=== PATIENT | male | born 1985 | race Caucasian/White ===

== ENCOUNTER → 2023-07-17 07:07 | Outpatient (REF) | payer OTHER, SELFPAY | LOC: HWRAD 07:07 | PROVIDERS: ATTENDING PHYSICIAN Student in an Organized Health Care Education/Training Program | DX: R19.09 Other intra-abdominal and pelvic swelling, mass and lump (principal) | CPT/HCPCS: 76870; 76882; 93976 ==

== ENCOUNTER 2023-08-26 20:50 | Inpatient (IN) | payer OTHER, SELFPAY ==
[2023-08-26 14:24] VITALS: BP 135/84
[2023-08-26 14:54] LABS: Hematocrit 48.4 % (39.0-52.0); Hemoglobin 16.4 g/dL (13.0-18.0); Mean Corp Hgb Conc. 33.9 g/dL (33.0-37.0); Mean Corpuscular Hgb 29.4 pg (27.0-31.0); Mean Corpuscular Volume 86.7 fL (80.0-94.0); Mean Platelet Volume 11.1 fL (7.4-10.4); Platelet Count 179 10^3/uL (130-400); Red Blood Cell Count 5.58 10^6/uL (4.70-6.10); Red Cell Dist. Width 12.1 % (11.5-14.5); White Blood Cell Count 7.6 10^3/uL (4.8-10.8)
[2023-08-26 15:09] LABS: ALT (SGPT) 22 U/L (0-50); AST (SGOT) 25 U/L (17-59); Albumin 4.6 g/dl (3.5-5.0); Alkaline Phosphatase 83 U/L (38-126); Blood Urea Nitrogen 12 mg/dl (9-20); Calcium 9.8 mg/dl (8.4-10.2); Carbon Dioxide 28 mmol/L (22-30); Chloride 101 mmol/L (98-107); Glucose 101 mg/dl (70-99); Potassium 3.7 mmol/L (3.5-5.1); Sodium 139 mmol/L (135-145); Total Bilirubin 0.8 mg/dl (0.2-1.3); Total Protein 8.3 g/dl (6.3-8.2); eGFR > 60.00
[2023-08-26 15:19] LABS: Nucleated Red Blood Cells % 0 % (-)
[2023-08-26 15:20] LABS: Absolute Neutrophils -Man Diff 4.2 10^3/uL (1.4-6.5); Atypical Lymphocytes 7 %; Band Neutrophils 1 % (0-3); Lymphocytes 30 % (20-51); Monocytes 7 % (2-9); Platelets Checked Yes; Segmented Neutrophils 55 % (42-75)
[2023-08-26 15:21] LABS: Normal RBC Morphology Yes; Total Cells Counted 100
[2023-08-26 16:25] VITALS: BP 140/72
--- NOTE | 2023-08-26 16:25 | ED.GENMED ---
History of Present Illness
General
Chief Complaint: Abdominal Symptoms
Time Seen by Provider: 08/26/23 16:24
Travel History
Have you had any contact with someone who has COVID-19?: No
Do you have any symptoms of coronavirus? Fever > 100 degrees, chills, cough, shortness of breath, sore throat, loss of taste or smell, muscle aches, or headache?: No
History of Present Illness
History of Present Illness:
HPI: The patient presents with left inguinal pain. He has upcoming surgery for left inguinal hernia repair with [facility] in about a month. He tells me that the pain is more severe that he cannot wait. He vomited once today. The pain is
primarily localized to the left inguinal/left hemiscrotal region.
EXAM:
GENERAL: Well appearing in minimal distress
HEENT: Moist oral mucosa
CARDIOVASCULAR: No murmurs, normal heart rate, regular rhythm, No chest wall tenderness
PULMONARY: No respiratory distress, breath sounds are clear and equal
ABDOMEN: Soft with no peritoneal signs, no tenderness, there is a large left inguinal hernia which is relatively soft but there is also extension of the left hemiscrotum which is larger than the size of a softball
NEUROLOGIC: Excellent strength all extremities, no coordination deficits
PSYCHIATRIC: Appropriate mental status, normal insight and judgement
EXTREMITIES: Nontender, no edema, moves all extremities equally
SKIN: No rash, no lesions
TIME OF INITIAL ENCOUNTER: 4:40 PM
NUMBER AND COMPLEXITY OF PROBLEMS ADDRESSED AT THE ENCOUNTER
� Chronic conditions affecting care: Known left inguinal hernia
� Acute Exacerbation and/or Progression of Chronic Illness: This is a subacute problem
� Differential Diagnosis includes: Incarcerated inguinal hernia, bowel obstruction, nonobstructive inguinal hernia
AMOUNT AND/OR COMPLEXITY OF DATA TO BE REVIEWED AND ANALYZED
� I performed an independent evaluation of and my interpretation is:
EKG:
CT: I personally viewed CT imaging and agree with radiologist interpretation that there is no obstruction but there is a large hernia in the left inguinal region
X-rays:
Laboratory Studies: White count is normal at 7.6, chemistries unremarkable
Other:
� Review of other/old records: The patient was seen here with a febrile illness 4 years ago
� Clinical information was obtained by an independent historian: None needed
� Prescriptions/Medications Considered but not given:
� Further testing considered but not performed:
RISK OF COMPLICATIONS AND/OR MORBIDITY OR MORTALITY OF PATIENT MANAGEMENT
� Social determinants of health affecting care: Lives at home
� Discussion with other providers: Discussed case with Dr. Hansen at 4:45 PM�he requests p.o. and IV contrast for further evaluation. Dr. Lima accepts to his service for further management and likely OR tomorrow with n.p.o.
We will hold off on NG tube as the patient has not vomited in the ED.
� Escalation of care including admission/observation vs risk of discharge considered: Labs unremarkable but will obtain CT imaging�CT imaging reviewed with general surgery.
Past History
Past History
ED Past Medical History: None
ED Past Surgical History: None
Patient has exhibited threatening behavior?: No
Social History
Tobacco: Non-smoker
Phy Exam
Physical Exam
Physical Exam:
See HPI
Course
Orders/Labs/Results
Orders:
Orders
08/26/23 14:37
CMP [Comprehensive Metabolic Panel] Urgent
Complete Blood Count/With Diff Urgent
Manual Differential Urgent
08/26/23 16:45
CT Abd/pel W Iv And Oral Contr Urgent
Comment:
Reason For Exam: large left inguinal hernia eval for obstruction
Iohexol [Omnipaque] See Protocol PO NOW STA
08/26/23 16:46
0.9% Sodium Chloride 1000 ml [Nss] 1,000 ml IV BOLUS
08/26/23 17:04
Lactic Acid Urgent
08/26/23 20:10
Admit/Transfer Patient As Directed
Co-Sign Provider:
Level of Care: Inpatient admission
Assign to:: Medical/Surgical
Physician / Group: Geovany Lima
Diagnosis: non-obstructive inguinal Hernia
Reason for Hospitalization: OR
IV Fluids
Expected length of stay greater than two midnights?: Yes
ELOS- Estimated Length of Stay in days: 2
I certify the patient meets the requirements for IP care: Yes
08/26/23 20:12
Code Status As Directed
Resuscitation Status: Full Code
Abnormal Lab Results
08/26/23
14:37
MPV 11.1 H fL
(7.4-10.4)
Glucose 101 H mg/dl
(70-99)
Total Protein 8.3 H g/dl
(6.3-8.2)
08/26/23 14:37
08/26/23 14:37
Vital Signs
Initial and Last Documented VS:
Initial Vital Signs
Temp Pulse Resp BP Pulse Ox
98.4 F 110 18 135/84 99
08/26/23 14:24 08/26/23 14:24 08/26/23 14:24 08/26/23 14:24 08/26/23 14:24
Last Documented Vital Signs
Temp Pulse Resp BP Pulse Ox
98.4 F 78 18 126/74 98
08/26/23 14:24 08/26/23 19:49 08/26/23 19:49 08/26/23 19:49 08/26/23 19:49
*Critical Care Note
Total Time (30-74mins, 75-104mins- exclusive of procedures): Not Applicable
ED Attending Note
-
Portions of this chart may have been created with voice recognition software.� Occasional wrong word or��sound alike� substitutions may have occurred due to the inherent limitations of voice recognition software.
Discharge Plan
Departure
Patient Disposition: Admit
Date of Disposition: 08/26/23
Time of Disposition: 19:45
Presentation/result/management discussed w/ accepting MD/DO: dr geovany pathak
Discharge Problem:
Hernia
Prescriptions:
No Action
No Current Medications
0
Referrals:
NONE,* [Family Provider] -
Interventions
Interventions:
*Risk Screen - Suicide Last Done: 08/26/23 14:24
*General Assessment Last Done: 08/26/23 14:24
*Neglect/Abuse Screening Last Done: 08/26/23 14:24
ED- Fall Risk Assessment Last Done: 08/26/23 16:27
*ED COVID-19 Vaccine History Last Done: 08/26/23 14:24
ZW-Tzwkoe-Ysymnirjus Assessment Last Done: 08/26/23 16:26
Discharge Date and Time
Print Language: SAMOAN
[2023-08-26] MEDS: OMNIPAQUE 50 ML PO (17:01)
[2023-08-26] MEDS: NSS 1000 IV ×2 (17:02→23:32)
[2023-08-26 19:49] VITALS: BP 126/74
--- NOTE | 2023-08-26 20:20 | HPS.HSE ---
Family Physician
-
Family Physician: * NONE
Chief Complaint
-
Left inguinal pain
History of Present Illness
37 y/o patient presents to ER with the c/o left inguinal pain. States pain was excruciating before coming to ER today, but has subsided as he urinated few times. Describes it as a pressure like pain around 5/10 and not radiating at present. Reports
he has upcoming surgery for left inguinal hernia repair with [facility] next month. Reports he had one episode of vomiting at home and was yellow bile. Also reports having 'bloody diarrhea' started today. Denies any history of colitis or previous
episodes of any stomach Discomfort. Denies chills, fever, nausea, chest pain or shortness of breath at present. No other medical history. No surgical history. no recent travels
Medical History
Past Medical History
Past Medical History: Reports Other
Additional Past Medical History:
Hernia
Past Surgical History: Reports None
Social History
Tobacco: Non-smoker
Alcohol: None
Drug: None
Personal:
Family History
Family History: Not pertinent
Allergies / Home Medications
Allergies reflects when Allergies were last updated in [employer].
Home Medications with original date entered in [employer]
Allergy/Medication List:
Allergies
Allergy/AdvReac Type Severity Reaction Status Date / Time
No Known Allergies Allergy Verified 08/26/23 14:27
Home Medications
No Meds [No Current Medications] 08/20/19
Review of Systems
-
History Source: Patient
A 12 point ROS was completed and negative except as noted: Yes
Constitutional: Reports No Symptoms
EENT: Reports No Symptoms
Respiratory: Reports No Symptoms
Cardiac: Reports No Symptoms
Abdomen/GI: Reports Abdominal Pain (left inguinal pain ), Nausea and Bloody Stools
: Reports Other (enlarged scortum left )
Musculoskeletal: Reports No Symptoms
Skin: Reports No Symptoms
Neurological: Reports No Symptoms
Endocrine: Reports No Symptoms
Hematologic/Lymphatic: Reports No Symptoms
Psych: Reports No Symptoms
Physical Exam
Vital Signs
Vital Signs
Temp Pulse Resp BP Pulse Ox
98.4 F 78 18 126/74 98
08/26/23 14:24 08/26/23 19:49 08/26/23 19:49 08/26/23 19:49 08/26/23 19:49
Physical Exam
General: Well Developed, Well Nourished and No Apparent Distress
HEENT: NormoCephalic, Moist mucous membranes and Atraumatic
Respiratory: Clear and Non Labored Respirations
Cardiac: S1/S2 and Regular Rhythm
Breast: Deferred by me
GI: Soft, Non Tender, Non Distended, Normal Bowel Sounds, Tender (left inguinal ) and Other (large left inguinal hernia )
Rectal: Deferred by Provider
Genito-urinary: No costovertebral tender and Other (enlarged scortum)
Musculoskeletal: No Clubbing and No Cyanosis
Skin: Warm and Dry
Neuro: Awake, Oriented, AO x 3 and Nonfocal/grossly intact
Hematologic/Lymphatic: No Lymphadenopathy
Psych: Calm and Intact Judgment/Insight
Laboratory Results
-
08/26/23 14:37
08/26/23 14:37
Laboratory Results
Lactic Acid 1.0 mmol/L (0.7-2.0) 08/26/23 17:04
Total Bilirubin 0.8 mg/dl (0.2-1.3) 08/26/23 14:37
AST 25 U/L (17-59) 08/26/23 14:37
ALT 22 U/L (0-50) 08/26/23 14:37
Alkaline Phosphatase 83 U/L (38-126) 08/26/23 14:37
Data Reviewed
-
CT Scan: Report Reviewed by me
Lab Data: Labs Reviewed by me
Impression/Plan
-
37 y/o patient with left inguinal pain
# Left Inguinal pain likely due to Non-Obstructed Left Inguinal Hernia
- will Admit to Dr. Lima
-Continue IV Fluids
-NPO
-Labs in AM
-Vomiting episode once at home
NG tube if vomiting persists
# Diarrhea Likely due to Colitis
-heme test stools
-check H/H
-may need GI Consult if persists
Full code
DVT Prophylaxis
[2023-08-26 22:35] VITALS: BP 103/66
[2023-08-26 23:00] VITALS: BP 105/66
[2023-08-26 23:21] VITALS: BMI 24.8
[2023-08-26 23:30] VITALS: BP 105/66
[2023-08-27 00:37] LABS: Hematocrit 40.2 % (39.0-52.0); Hemoglobin 14.1 g/dL (13.0-18.0)
[2023-08-27 07:00] VITALS: BP 104/64
[2023-08-27 07:21] LABS: Hematocrit 41.5 % (39.0-52.0); Hemoglobin 14.4 g/dL (13.0-18.0); Mean Corp Hgb Conc. 34.7 g/dL (33.0-37.0); Mean Corpuscular Hgb 29.6 pg (27.0-31.0); Mean Corpuscular Volume 85.2 fL (80.0-94.0); Mean Platelet Volume 10.8 fL (7.4-10.4); Platelet Count 148 10^3/uL (130-400); Red Blood Cell Count 4.87 10^6/uL (4.70-6.10); Red Cell Dist. Width 12.2 % (11.5-14.5); White Blood Cell Count 4.6 10^3/uL (4.8-10.8)
[2023-08-27 07:47] LABS: Blood Urea Nitrogen 13 mg/dl (9-20); Calcium 8.7 mg/dl (8.4-10.2); Carbon Dioxide 25 mmol/L (22-30); Chloride 103 mmol/L (98-107); Estimated Creatinine Clearance 103 ml/min; Glucose 70 mg/dl (70-99); Potassium 3.5 mmol/L (3.5-5.1); Sodium 138 mmol/L (135-145); eGFR > 60.00
--- NOTE | 2023-08-27 08:33 | HP.FOC2 ---
Focused History & Physical
Chief Complaint
HPI:
Chief Complaint: Left inguinal scrotal pain
HPI / Indication for Planned Procedure: Patient seen and examined independently of admitting nurse practitioner overnight. He is a 37-year-old male known to our surgical service recently seen in outpatient surgical evaluation secondary to a
chronically incarcerated and longstanding left inguinal scrotal hernia. He was having increasing discomfort yesterday with some mild nausea and was therefore referred from our surgical office for ER evaluation. He underwent CT imaging confirming
the presence of a large left inguinoscrotal hernia containing sigmoid colon but no radiographic or clinical signs of obstruction. He was admitted overnight for observation and consideration of repair.
This a.m. Lawson states that he is feeling well. Minimal to no discomfort in the left inguinal region. No further nausea. No vomiting. He states that he has been moving his bowels regularly up until presentation yesterday.
Relevant Past Medical History: Negative
Relevant Social History: Negative
Relevant Family History: Negative
Relevant Past Surgical History: Negative
Review of Systems
Review of Pertinent Systems: All Systems Negative
Medication
See Medication form for detailed medications: Yes
Medication List (including Herbals & OTC):
No Meds [No Current Medications] 08/20/19
Medications Reviewed: Yes
Allergies and Reactions
Patient has Allergies: No
Noted Allergies and Reactions:
Allergy/AdvReac Type Severity Reaction Status Date / Time
No Known Allergies Allergy Verified 08/26/23 14:27
Pertinent Physical Exam
All Other Systems: Negative
Head/Neck: Normal
Lungs: Normal
Heart: Normal
Abdomen: Other (Large left inguinal scrotal hernia. Soft. Did not attempt to reduce. No significant tenderness during examination.)
Extremities: Normal
Neurological: Normal
Diagnosis / Assessment
37-year-old male with large, chronically incarcerated left inguinal scrotal hernia. Acute exacerbation of pain/discomfort in the inguinal hernia region but no radiographic no clinical signs of strangulation/obstruction. His symptoms have been
alleviated with rest.
Lengthy discussions with patient and his via phone call. I offered him surgical correction today. Due to size of the hernia we discussed that the 2 options for surgical repair would be open versus robotic assisted laparoscopic. Straight
laparoscopic would likely be quite challenging with a high risk of conversion to open even if the contents of this hernia or reducible after surgery.
After our discussions of the options patient strong preference is for minimally invasive repair over open repair. Evaluating the surgical schedule today there is no robotic system available. Given that the patient is clinically stable without any
signs of strangulation/obstruction his and his 's preference is for discharge home with outpatient set up of left inguinal hernia repair.
They are aware of the risk for exacerbation of his pain. I advised him to take it easy and avoid strenuous lifting. Recommended a bowel regiment with MiraLAX daily unless stools are loose.
Our office will follow-up with patient and his to set date for surgery
Plan / Procedure
Resume regular diet discharge home with outpatient scheduling for robotic assisted laparoscopic repair left inguinal hernia
--- NOTE | 2023-08-27 08:41 | W.DS.TRANS ---
DC Summary - [employer]
-
Discharge Instructions:
Discharge Diagnosis/Procedures Chronically incarcerated left inguinal hernia;
acute exacerbation of pain but no strangulation
or obstruction
Diet As tolerated,Regular
Activity No strenuous activity
Driving Restrictions As prior to admission
Bathing Restrictions None
Instructions:
Stand-Alone Forms:
Changes to Home Medications: No
Discharge Medications:
DC Medications w/original date entered in [employer]
acetaminophen 500 mg tablet (Tylenol Extra Strength) 1,000 mg (2 x 500 mg) PO Q6HPRN PRN mild pain #1 tab 08/27/23
ibuprofen 200 mg tablet 400 mg (2 x 200 mg) PO Q6HPRN PRN moderate pain #1 tab 08/27/23
polyethylene glycol 3350 17 gram/dose oral powder (Miralax) 4 g PO DAILY PRN Constipation #119 grams 08/27/23
Home Medication Changes
Pending Results: No
== END 2023-08-27 14:57 | disposition home or self-care (01) | DRG 395 ==
LOC: 3 WEST ACU 20:50
PROVIDERS: Emergency Medicine; Nurse Practitioner Gerontology; ADMITTING PHYSICIAN Surgery; EMERGENCY PHYSICIAN Emergency Medicine
DX: K40.31 Unilateral inguinal hernia, with obstruction, without gangrene, recurrent (principal); K52.9 Noninfective gastroenteritis and colitis, unspecified; N50.82 Scrotal pain
CPT/HCPCS: 74177; 80048; 80053; 83605; 85014; 85018; 85025; 85027; 96360; 99285; Q9967

== ENCOUNTER 2023-09-28 06:41 | Day surgery (SDC) | payer OTHER, SELFPAY ==
[2023-09-28] VITALS (13 sets, daily range): BP systolic 110–136; BP diastolic 79–95; BMI 26.3
[2023-09-28] MEDS: TYLENOL 1000 MG PO (08:58)
--- NOTE | 2023-09-28 14:44 | W.IMMPOSTOP ---
Surgical Immed Post Op Note
-
Primary Surgeon: Jade
Assisting: Chitra KENNEDY
Pre-op Diagnosis: Incarcerated left inguinal hernia
Post-op Diagnosis: Same
Procedure Performed: Robot assisted laparoscopic repair incarcerated left inguinal hernia
Anesthesia Type: GETA
Specimen / Cultures: None
Estimated Blood Loss: 40cc
Complications: None immediate
Operative Findings: Very large incarcerated inguinoscrotal hernia, unable to reduce via robotic approach; counter incision made that ultimately allowed reduction; XL MID 3D max
--- NOTE | 2023-09-28 14:46 | OR.RPT ---
Operative Report
Operative Report
Primary Surgeon: Jade
Assisting: Chitra KENNEDY
Pre-op Diagnosis: Incarcerated left inguinal hernia
Post-op Diagnosis: Same
Procedure Performed: Robot assisted laparoscopic repair incarcerated left inguinal hernia
Anesthesia Type: GETA
Specimen / Cultures: None
Estimated Blood Loss: 40cc
Complications: None immediate
Operative Findings: Very large incarcerated inguinoscrotal hernia, unable to reduce via robotic approach; counter incision made that ultimately allowed reduction; XL MID 3D max
Date of surgery: 09/28/23
Indications:� This 37M developed symptomatic incarcerated left inguinal hernia. Robot assisted laparoscopic repair was planned.
Description of procedure:� The patient was taken to the operating room and positioned into supine position. The patient�s abdomen was prepped and draped in standard sterile fashion. A time-out was completed verifying correct patient, procedure,
site, positioning, and implants and special equipment prior to beginning this procedure.� The hernia was manually reduced after induction. A stab incision was made in the left upper quadrant, a Veress needle was inserted and proper position was
confirmed by aspiration and saline drop test. Following this, pneumoperitoneum was created with insufflation of carbon dioxide to 12 mmHg. Then a 8mm robotic trocar was inserted above and to the left of the umbilicus. A laparoscope was inserted and
the area of initial trocar entry and Veress needle placement were both inspected and no injuries were found. Two 8mm trocars were then placed lateral to the rectus sheath under direct visualization.
Both inguinal regions were inspected and the median umbilical ligament, medial umbilical ligament, and lateral umbilical fold were identified. Attention was turned to the left groin. Several attempts were mad to reduce the sigmoid colon from the
hernia unsuccessfully. The peritoneum was incised transversely above the defect and a flap was developed in the caudad direction. Tay�s ligament was identified ultimately dissected to its junction with the iliac vein and the space of Retzius was
developed bluntly.�The dissection was continued inferiorly to the iliopubic tract, with care taken to avoid injury to the femoral branch of the genitofemoral nerve and the lateral femoral cutaneous nerve. The cord structures were parietalized.
Attempts at reduction continued until the decision was made that a counter incision would be required.
An incision was made in oblique fashion from two fingerbreadths above the pubic tubercle extending laterally to above the anterior superior iliac spine. The incision was carried down to the external oblique aponeurosis with electrocautery. The
aponeurosis was incised with a #15 blade and a metzenbaum pro was used to elevate the aponeurosis and incise it from lateral to medial, ultimately opening the external ring. Opening the ring released significant tension on the hernia contents and
at this point they were able to be reduced.
The direct space was inspected no hernia was identified. The femoral space was inspected a defect was not identified.� The indirect space was inspected and a hernia was identified and reduced by gentle traction.
Extra large left MID 3D max mesh was passed through a trocar. The mesh was placed into the preperitoneal space and moved into position to lay flat and completely cover the direct, indirect, and femoral spaces with overlap beyond the midline. The
mesh was secured into place using 2-0 vicryl suture to Tay�s ligament medially and laterally. Care was taken to avoid the inferolateral triangles containing the iliac vessels and genital nerves. The peritoneal flap was closed over the mesh and
secured with 2-0 monocryl stratafix suture in similar positions of safety. A large inferior flap rent was closed with 2-0 monocryl stratafix suture. A 14g angiocath was used to decompress the preperitoneal space revealing good seal and all mesh in
good position without folding or curling.
After ensuring adequate hemostasis, the trocars were removed and the pneumoperitoneum allowed to escape. The trocar incisions were closed at the skin level using 4-0 monocryl and topical skin adhesive. Attention was turned to the counter incision.
The external oblique was reapproximated with running 2-0 monocryl stratafix suture. Marcie's was closed in similar fashion. The skin was closed with samuel. All counts were correct and the patient tolerated the procedure well and was taken to the
postanesthesia care unit in stable condition.
The assistance of Chitra KENNEDY was required due to the complexity of the procedure. During the procedure she assisted with retraction, resection, and closure of the wound.
== END 2023-09-28 19:20 | disposition home or self-care (01) ==
LOC: SDS 06:41
PROVIDERS: ATTENDING PHYSICIAN Surgery
DX: K40.30 Unilateral inguinal hernia, with obstruction, without gangrene, not specified as recurrent (principal)
CPT/HCPCS: 49650; C1781